=== PATIENT | female | born 1975 | race Two or more races ===

== ENCOUNTER 2017-05-20 13:30 | Emergency (ER) | payer OTHER ==
[~2017-05-20] VITALS: Ht 165.1 cm; Wt 83.9 kg
[2017-05-20 15:20] VITALS: BP 109/74
== END 2017-05-20 15:20 | disposition home or self-care (01) ==
LOC: ED 13:30
DX: S63.611A Unspecified sprain of left index finger, initial encounter (principal); S13.4XXA Sprain of ligaments of cervical spine, initial encounter; S80.212A Abrasion, left knee, initial encounter; R10.30 Lower abdominal pain, unspecified; R51 Headache; V49.40XA Driver injured in collision with unspecified motor vehicles in traffic accident, initial encounter; Y93.I9 Activity, other involving external motion; Y92.410 Unspecified street and highway as the place of occurrence of the external cause; Y99.8 Other external cause status
CPT/HCPCS: Q0092

== ENCOUNTER 2017-10-01 19:19 | Emergency (ER) | payer OTHER ==
[~2017-10-01] VITALS: Ht 170.2 cm; Wt 81.8 kg
[2017-10-01 19:22] VITALS: Ht 170.2 cm; Wt 81.8 kg
[2017-10-01 21:44] VITALS: BP 134/86
== END 2017-10-01 21:44 | disposition home or self-care (01) ==
LOC: ED 19:19
DX: J06.9 Acute upper respiratory infection, unspecified (principal); R07.89 Other chest pain
CPT/HCPCS: 87804; Q0092